=== PATIENT | male | born 1990 | race African-American/Black ===

== ENCOUNTER 2022-10-14 13:00 | Emergency (ER) | payer OTHER ==
[~2022-10-14] VITALS: Ht 182.9 cm; Wt 70.9 kg
[~2022-10-14 13:00] MED LIST: NOCURR
[2022-10-14] MEDS: KETOROLAC TROMETHAMINE 30 MG/ML VIAL IM ONE ×2 (14:27→14:55)
[2022-10-14] MEDS ORDERED: IBUPROFEN 600 MG TABLET PO ONE (15:00)
[2022-10-14] MEDS ORDERED: CYCL-448 PO (15:37)
[2022-10-14 16:40] VITALS: BP 141/77
== END 2022-10-14 16:50 | disposition home or self-care (01) ==
LOC: EMS 13:13
DX: M54.50 Low back pain, unspecified (principal); M25.512 Pain in left shoulder; J45.909 Unspecified asthma, uncomplicated; Z98.890 Other specified postprocedural states
CPT/HCPCS: 99284; 71101; 72100; J1885

== ENCOUNTER 2025-01-23 16:11 | Emergency (ER) | payer OTHER ==
[~2025-01-23] VITALS: Ht 182.9 cm; Wt 71.8 kg
[~2025-01-23 16:11] MED LIST changes: +CYCL-448 PO; -NOCURR
[2025-01-23 16:33] VITALS: BP 124/65; PULSE 89; RESP 18; TEMP 98.8; O2SAT 98
[2025-01-23] MEDS: IBUPROFEN 600 MG TABLET PO ONE (17:32)
== END 2025-01-23 19:07 | disposition home or self-care (01) ==
LOC: EMS 16:11
DX: M72.2 Plantar fascial fibromatosis (principal); J45.909 Unspecified asthma, uncomplicated
CPT/HCPCS: 99283

== ENCOUNTER 2025-03-09 12:43 | Emergency (ER) | payer OTHER ==
[~2025-03-09] VITALS: Ht 182.9 cm; Wt 84.1 kg
[2025-03-09] MEDS ORDERED: OXYC1TAB6 PO (12:48)
[2025-03-09 12:49] VITALS: TEMP 98.7
[2025-03-09] MEDS: LIDOCAINE 1% 20 ML VIAL SQ ONE (15:03)
[2025-03-09] MEDS ORDERED: CEPH-558 PO (16:06)
[2025-03-09] MEDS ORDERED: PERCT PO (16:08)
[2025-03-09 16:20] VITALS: BP 121/86; PULSE 96; RESP 16; O2SAT 97
== END 2025-03-09 16:20 | disposition home or self-care (01) ==
LOC: EMS 12:43
DX: S61.210A Laceration without foreign body of right index finger without damage to nail, initial encounter (principal); S61.216A Laceration without foreign body of right little finger without damage to nail, initial encounter; J45.909 Unspecified asthma, uncomplicated; Z79.899 Other long term (current) drug therapy; Z91.041 Radiographic dye allergy status; W45.8XXA Other foreign body or object entering through skin, initial encounter; Y93.89 Activity, other specified; Y92.89 Other specified places as the place of occurrence of the external cause; Y99.8 Other external cause status
CPT/HCPCS: 99283; 73130; 12002; J3490